=== PATIENT | female | born 1965 | race Caucasian/White ===

== ENCOUNTER → 2024-03-10 | Outpatient (CLI) | payer OTHER, SELFPAY ==
--- NOTE | 2024-03-10 08:59 | NM_ITS ---
CLINICAL: 59-year-old female with history of right pelvic pain. WHOLE BODY 99m Tc MDP RADIONUCLIDE BONE SCINTIGRAPHY COMPARISON: None available FINDINGS: Following the intravenous administration of 25.6 mCi of 99m Tc MDP, whole body bone images reveal: 1. Increased radiopharmaceutical is noted in the left proximal humeral metaphysis, the right sacroiliac joint, the first thoracic vertebra diffusely. 2. Enhanced uptake is demonstrated in the right wrist, the hands bilaterally, the patellofemoral compartments of both knees, the posterior compartment of the ankles bilaterally, right-left elbows, the lower cervical spine posteriorly on the left, the 12th thoracic and first through fifth lumbar vertebra. 3. The remaining skeletal structures are scintigraphically unremarkable with normal-appearing renal images and urinary bladder activity identified. The presumed asymptomatic visualized right shoulder and right-left hip arthroplasties demonstrate mild increased uptake most consistent with normal postsurgical change. NM/Bone Scan Whole Body IMPRESSION: 1. The increase in radiotracer defined in the left proximal humeral metaphysis, the right sacroiliac joint and first thoracic vertebra warrant further investigation with plain film radiography in setting of known previous lymphoma. 2. 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 Electronically Signed: Benny Khan DO at 12:31 EDT ,
[2024-03-10] MEDS: 0.9% Saline Lock 10 ML Syringe IV (09:35)
== END | disposition home or self-care (01) ==
LOC: NM 08:53
PROVIDERS: Referring Provider Nurse Practitioner; Visit Provider Nurse Practitioner
DX: M48.48XA Fatigue fracture of vertebra, sacral and sacrococcygeal region, initial encounter for fracture (principal); X58.XXXA Exposure to other specified factors, initial encounter
CPT/HCPCS: 78306; A9503; A4216

== ENCOUNTER → 2025-05-29 | Outpatient (CLI) | payer OTHER, SELFPAY ==
[2025-05-29 18:40] LABS: Barbiturate Urine NEGATIVE (< 200 ng/mL); Benzodiazepine Urine NEGATIVE (< 200 ng/mL); PCP Urine NEGATIVE (< 25 ng/mL); THC Urine NEGATIVE (< 50 ng/mL)
== END | disposition home or self-care (01) ==
PROVIDERS: Referring Provider Anesthesiology Pain Medicine; Visit Provider Anesthesiology Pain Medicine
DX: F11.20 Opioid dependence, uncomplicated (principal)
CPT/HCPCS: 80307